=== PATIENT | female | born 1980 | race Caucasian/White ===

== ENCOUNTER 2018-12-15 14:27 | Emergency (ER) | payer MEDICAID ==
[~2018-12-15] VITALS: Ht 157.5 cm; Wt 77.1 kg
[2018-12-15 14:54] LABS: ABSOLUTE BASOPHILS 0.1 thou/uL (0.0-0.2); ABSOLUTE EOSINOPHILS 0.3 thou/uL (0.0-0.7); ABSOLUTE LYMPHOCYTES 3.5 thou/uL (0.8-5.3); ABSOLUTE MONOCYTES 0.6 thou/uL (0.0-1.2); ABSOLUTE NEUTROPHILS 4.3 thou/uL (1.6-8.1); EOSINOPHILS 3.4 %; HEMOGLOBIN 14.5 gm/dL (12.0-15.0); LYMPHOCYTES 39.8 %; MCH 32.4 pg (26.0-34.0); MCHC 33.8 g/dL (28.0-37.0); MCV 95.8 fL (80.0-100.0); MONOCYTES 6.3 %; MPV 7.9 fl. (7.2-11.1); NUCLEATED RBCS 0 /100WBC; PLATELET COUNT* 256 thou/uL (150-400); POLYS 49.5 %; RBC 4.49 mil/uL (4.20-5.00); RDW-CV 13.1 % (10.5-14.5); WBC 8.7 thou/uL (4.0-11.0)
[2018-12-15 14:55] LABS: URINE BILIRUBIN NEGATIVE (Negative); URINE BLOOD NEGATIVE (Negative); URINE CLARITY CLOUDY; URINE COLOR YELLOW; URINE GLUCOSE-RANDOM NEGATIVE (Negative); URINE KETONES NEGATIVE (Negative); URINE LEUKOCYTES-REFLEX NEGATIVE (Negative); URINE NITRITE-REFLEX NEGATIVE (Negative); URINE PROTEIN NEGATIVE (Negative); URINE SPECIFIC GRAVITY >= 1.030 (1.005-1.030); URINE UROBILINOGEN 0.2 E.U./dl (0.2-1.0)
[2018-12-15 15:04] LABS: CALCIUM 8.3 mg/dL (8.5-10.1); CREATININE 0.7 mg/dL (0.6-1.3); POTASSIUM 4.5 mmol/L (3.5-5.1)
[2018-12-15 15:07] LABS: SQUAMOUS >10 Many /LPF (0-3)
[2018-12-15 15:08] LABS: ALBUMIN 4.3 g/dL (3.4-5.0); TOTAL BILIRUBIN 0.4 mg/dL (<0.1-1.0); TOTAL PROTEIN 7.7 g/dL (6.4-8.2)
[2018-12-15 15:08] LABS: CASTS None Seen /LPF (None Seen); CRYSTALS None Seen /LPF (None Seen); MUCUS >6 Heavy strn/LPF (None Seen); URINE RBC 0-2 Rare /HPF (0-2); URINE WBC-REFLEX 0-5 Rare /HPF (0-5)
[2018-12-15] MEDS ORDERED: ACETAMINOPHEN-1 EAC1 PO (16:25)
[2018-12-15] MEDS ORDERED: MIRALAX17 GM PO (16:25)
[2018-12-15] MEDS ORDERED: NAPROSYN500 MG PO (16:25)
[2018-12-15] MEDS ORDERED: CITRATE OF MAG296 ML PO (16:25)
[2018-12-15 17:04] VITALS: BP 100/74
== END 2018-12-15 17:06 | disposition home or self-care (01) ==
LOC: M.ERS 14:27
PROVIDERS: Physician Assistant
DX: K59.00 Constipation, unspecified (principal); R19.7 Diarrhea, unspecified; N94.89 Other specified conditions associated with female genital organs and menstrual cycle; R11.2 Nausea with vomiting, unspecified; R10.31 Right lower quadrant pain; R10.32 Left lower quadrant pain; Z90.710 Acquired absence of both cervix and uterus